=== PATIENT | male | born 1995 | race African-American/Black ===

== ENCOUNTER 2017-08-16 11:11 | Emergency (ER) | payer OTHER, SELFPAY ==
[~2017-08-16] VITALS: Ht 180.3 cm; Wt 62.3 kg
[2017-08-16] MEDS ORDERED: MAGICMW SSP (13:52)
[2017-08-16 13:58] VITALS: BP 126/77
== END 2017-08-16 14:01 | disposition home or self-care (01) ==
LOC: M ED 11:11
DX: J02.9 Acute pharyngitis, unspecified (principal); F17.200 Nicotine dependence, unspecified, uncomplicated; J30.2 Other seasonal allergic rhinitis

== ENCOUNTER 2019-10-22 20:33 | Emergency (ER) | payer OTHER, SELFPAY ==
[~2019-10-22] VITALS: Ht 177.8 cm; Wt 59.1 kg
[~2019-10-22 20:33] MED LIST: MAGICMW SSP
[2019-10-22 20:34] VITALS: BP 137/88
--- NOTE | 2019-10-23 01:15 | REP ---
Clinical: Status post reduction. Technique: Single neutral view of the left shoulder. Findings: Satisfactory reduction. Acromioclavicular and glenohumeral joints are intact. No acute fracture. No subcutaneous emphysema, abnormal calcifications/loose body, or foreign body. Impression: Satisfactory reduction. Electronically Signed by Fabian Bronson MD 10/23/2019 01:07 A
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
== END 2019-10-22 21:51 | disposition home or self-care (01) ==
LOC: M ED 20:33
DX: S43.015A Anterior dislocation of left humerus, initial encounter (principal); Y04.0XXA Assault by unarmed brawl or fight, initial encounter; Y92.410 Unspecified street and highway as the place of occurrence of the external cause; J30.2 Other seasonal allergic rhinitis

== ENCOUNTER 2020-07-04 00:44 | Emergency (ER) | payer OTHER, SELFPAY ==
[~2020-07-04] VITALS: Ht 180.3 cm; Wt 58.7 kg
[2020-07-04 00:47] VITALS: BP 136/83
[2020-07-04] MEDS ORDERED: KEFL500C17 PO (01:20)
[2020-07-04] MEDS ORDERED: CEPHALEXIN 500 MG CAP PO ONE (01:30)
== END 2020-07-04 01:31 | disposition home or self-care (01) ==
LOC: M ED 00:44
DX: S80.862A Insect bite (nonvenomous), left lower leg, initial encounter (principal); W57.XXXA Bitten or stung by nonvenomous insect and other nonvenomous arthropods, initial encounter; Y92.9 Unspecified place or not applicable; Y93.9 Activity, unspecified; Y99.9 Unspecified external cause status; F17.200 Nicotine dependence, unspecified, uncomplicated

== ENCOUNTER 2020-07-05 21:00 | Emergency (ER) | payer OTHER ==
[~2020-07-05] VITALS: Ht 177.8 cm; Wt 58.2 kg
[~2020-07-05 21:00] MED LIST changes: +KEFL500C17 PO
[2020-07-05 21:01] VITALS: BP 128/68
== END 2020-07-05 21:43 | disposition home or self-care (01) ==
LOC: M ED 21:00
DX: L03.116 Cellulitis of left lower limb (principal); S80.862D Insect bite (nonvenomous), left lower leg, subsequent encounter; W57.XXXD Bitten or stung by nonvenomous insect and other nonvenomous arthropods, subsequent encounter; Y92.9 Unspecified place or not applicable; F17.200 Nicotine dependence, unspecified, uncomplicated

== ENCOUNTER 2020-10-07 10:18 | Emergency (ER) | payer OTHER ==
[~2020-10-07] VITALS: Ht 177.8 cm; Wt 57.9 kg
--- OUTSIDE RECORDS SUMMARY | 2020-10-07 10:26 | CCD ---
Author Author [facility] Organization [facility] Address Unknown Phone Unavailable Care Team Providers Care Maintenance Leader Name Role Phone Dille, E Torri DDS Unavailable Unavailable Dille, E Torri DDS Unavailable Unavailable Dille, E Torri DDS Unavailable Unavailable Dille, E Torri DDS Unavailable Unavailable Re-disclosure Warning The records that you are about to access may contain information from federally-assisted alcohol or drug abuse programs. If such information is present, then the following federally mandated warning applies: This information has been disclosed to you from records protected by federal confidentiality rules (42 CFR part 2). The federal rules prohibit you from making any further disclosure of this information unless further disclosure is expressly permitted by the written consent of the person to whom it pertains or as otherwise permitted by 42 CFR part 2. A general authorization for the release of medical or other information is NOT sufficient for this purpose. The Federal rules restrict any use of the information to criminally investigate or prosecute any alcohol or drug abuse patient.The records that you are about to access may contain highly sensitive health information, the redisclosure of which is protected by Article 27-F of the [facility] Public Health law. If you continue you may have access to information: Regarding HIV / AIDS; Provided by facilities licensed or operated by the [facility] Office of Mental Health; or Provided by the [facility] Office for People With Developmental Disabilities. If such information is present, then the following [facility] mandated warning applies: This information has been disclosed to you from confidential records which are protected by state law. State law prohibits you from making any further disclosure of this information without the specific written consent of the person to whom it pertains, or as otherwise permitted by law. Any unauthorized further disclosure in violation of state law may result in a fine or senior care sentence or both. A general authorization for the release of medical or other information is NOT sufficient authorization for further disc losure. Encounters Encounter Providers Location Date Indications Data Source(s ) Outpatient Attender: Torri Zhang [facility] 03/04/2020 07:46:51 P M [facility] Outpatient Attender: Torri Zhang [facility]00 AM [facility] 11/10/2019 03:35:00 PM [facility] Insurance Providers Payer name Policy type / Coverage type Policy ID Covered green party ID Covered green party's relationship to cardenas Policy Cardenas Plan Information EUN [id number] SP [id number] EUN [id number] SP [id number] SELF PAY ONLY [id number] SP [id number] O UNAVAILABLE UNAVAIL[place] BLE P HEALTH CARE O [id number] O [id number] [facility] [id number] SP [id number] EUN [id number] SP [id number] [facility] HEALTH INSURANCE COMPANY-O/P [id number] 18 [id number] [facility] Commercial Self Pay P UNAVAILABLE S UNAVAILA BLE D [employer] P [id number] S [id number] D MVP Insurance P [id number] O [id number] [facility] [employer] [id number] 18 [id number] [facility] [employer]ANCE [employer]-O/P [id number] 18 [id number] [facility] [employer] [id number] 18 [id number] [facility] [employer] [id number] 19 [id number] [facility] HEALTH CARE P [id number] S [id number] [facility] [employer] INS[employer]ANCE COMPANY-O/P [id number] 19 [id number]
--- NOTE | 2020-10-07 11:03 | REP ---
INDICATION: constipation, n/v. COMPARISON: None. TECHNIQUE: Supine and erect views of the abdomen performed as well as a frontal view of the chest. FINDINGS: There is no evidence of free intraperitoneal air or bowel obstruction. No dilated bowel loops are seen. There are multiple phleboliths in pelvis. The visualized osseous structures are unremarkable. There is no acute infiltrate in either lung. The heart is normal in size and the mediastinal silhouette is unremarkable. IMPRESSION: Negative abdominal series. <Electronically signed by Andrew Jerez > 10/07/20 [id number]
[2020-10-07 12:00] VITALS: BP 110/62
--- OUTSIDE RECORDS SUMMARY | 2020-10-07 12:04 | CCD ---
Author Author [facility] Organization [facility] Address Unknown Phone Unavailable Care Team Providers Care Financial Service Rep Name Role Phone Dille, E Torri DDS [...] is protected by Article 27-F of the [facility] Public Health law. If you continue you may have access to information: Regarding HIV / AIDS; Provided by facilities licensed or operated by the [facility] Office of Mental Health; or Provided by the [facility] Office for People With Developmental Disabilities. If such information is present, then the following [facility] mandated warning applies: This information has been [...] law may result in a fine or skilled nursing sentence or both. A general authorization for the release of medical or other information is NOT sufficient authorization for further disc losure. Encounters Encounter Providers Location Date Indications Data Source(s ) Outpatient Attender: Torri Zhang [facility] 03/04/2020 07:46:51 P M [facility] Outpatient Attender: Torri Zhang [facility]00 AM [facility] 11/10/2019 03:35:00 PM [facility] Insurance Providers Payer name Policy type / Coverage type Policy ID Covered alliance party ID Covered alliance party's relationship to cardenas Policy Cardenas Plan Information EUN [id number] SP [id number] EUN [id number] SP [id number] SELF PAY ONLY [id number] SP [id number] O UNAVAILABLE UNAVAILA BLE P HEALTH CARE O [id number] O [id number] [facility] [id number] SP [id number] EUN [id number] SP [id number] [facility] HE[employer] INSURANCE COMPANY-O/P [id number] 18 [id number] [facility] Commercial Self Pay P UNAVAILABLE S UNAVAILA BLE D [employer] P [id number] S [id number] D MVP Insurance P [id number] O [id number] [facility] [id number] 18 [id number] [facility] [employer]-O/P [id number] 18 [id number] [facility] [id number] 18 [id number] [facility] [id number] 19 [id number] [facility] HEALTH CARE P [id number] S [id number] [facility] [employer]ANCE [employer]-O/P [id number] 19 [id number]
== END 2020-10-07 12:14 | disposition home or self-care (01) ==
LOC: M ED 10:18
DX: K59.00 Constipation, unspecified (principal)